=== PATIENT | female | born 1950 | race Caucasian/White ===

== ENCOUNTER 2017-01-19 10:52 | Day surgery (SDC) | payer MEDICARE, BC ==
[2017-01-17 12:53] VITALS: BMI 29.7
[~2017-01-19 10:52] MED LIST: ALBUTEROL NEB (CONC) 2.5 MG/0.5 ML INHALATION ONE; DEXAMETHASONE SOD PHOSPHATE 10 MG/ML 1 ML VIAL IV ONE; HYDROmorphone 1 MG/ML 1 ML SYRINGE IVP PRN; LACTATED RINGERS 1,000 ML IV ONE; LACTATED RINGERS 1,000 ML IV SCH; LIDOCAINE 2% (PF) 20 MG/ML 10ML INHALATION ONE; ONDANSETRON 4 MG/2 ML VIAL IVP ONE
[2017-01-19 11:35] VITALS: TEMP 97.8
[2017-01-19] MEDS ORDERED: LIDOCAINE 1% 20 ML VIAL (10MG/ML) FOR IV START INTRADERMA ONE (11:43)
[2017-01-19] MEDS ORDERED: LIDOCAINE 1% INJ 10MG/ML (20 ML MDV) ONE (12:16)
[2017-01-19] MEDS ORDERED: PROPOFOL 10 MG/ML 20 ML VIAL IV ONE (12:16)
[2017-01-19] MEDS ORDERED: LACTATED RINGERS 1,000 ML IV ONE (12:35)
--- NOTE | 2017-01-19 12:49 | P.PCN ---
Date of Procedure: 01/19/17 Preoperative Diagnosis: Tracheal stenosis Postoperative Diagnosis: Tracheal stenosis Procedure(s) Performed: Bronchoscopy with visualization and measurement of tracheal stenosis Implants: Anesthesia: KAYLYNA Surgeon: Rufino York Roll Off Driver #1: Chani Jaime Estimated Blood Loss (ml): 0 Pathology: none sent Condition: stable Disposition: PACU Indications for Procedure: Shortness of breath, stridor Operative Findings: Tracheal stenosis, approximately 8mm Description of Procedure: A 66-year-old female patient suspected to have recurrence tracheal stenosis. For that reason the flexible bronchoscopy and airway inspection was performed This procedure was done in the bronchoscopy suite. The patient had some stridorous cough. She was quite comfortable preoperatively. The patient was given a total of 100 mg of propofol. After achieving the sedation flexible bronchoscope was inserted to the right nostril and was advanced upper airway. Examination of posterior pharynx was within normal limits. Epiglottis was identified and was normal. Arytenoids, vallecula, and the cords were visualized. The cords were seen and visualized and inspected and are all within normal limits without any abnormalities mobility or function. No nodules. No lesions. No upper airway obstruction. Following that the bronchoscope was passed the vocal cords and immediately in the subglottic area around 1-2 cm below the vocal cords there was an area of tight tracheal stenosis where there was circumferential fibrinous tissue causing narrowing of the tracheal lumen and estimated tracheal size and the level of the stenosis was 8-9 mm. Measurements were estimated by a forceps the opening of which was 6 mm. I was able to pass the bronchoscope past the tracheal stenosis yet this maneuver made patient quite short of breath and stridorous and immediately the flexible bronchoscope was removed. The stenotic segment of the trachea is estimated to be less than 1 cm. The mid and distal tracheal clark was within normal limits. Unable to visualize the various segments of the lower lobes bilaterally based on the fact that the patient became quite short of breath and she developed immediate hypoxemia once intubated through the area of tight tracheal stenosis. At that point, the flexible bronchoscope was removed and the patient was sent to recovery in stable condition. The patient will be referred to see cardiothoracic surgery at [facility] for further advice.
[2017-01-19 12:53] VITALS: RESP 20
[2017-01-19 13:02] VITALS: BP 138/74; PULSE 78
[2017-01-19 14:07] LABS: Glucose,Whole Blood 125 mg/dL (75-99)
== END 2017-01-19 13:22 | disposition home or self-care (01) ==
LOC: ORWHC2ENDO 10:52
PROVIDERS: ATTEND Internal Medicine Critical Care Medicine
DX: J39.8 Other specified diseases of upper respiratory tract (principal); E11.9 Type 2 diabetes mellitus without complications; K21.9 Gastro-esophageal reflux disease without esophagitis; Z88.8 Allergy status to other drugs, medicaments and biological substances
CPT/HCPCS: 31645; 94640

== ENCOUNTER → 2018-12-29 | Outpatient (CLI) | payer MEDICARE, BC | END | disposition home or self-care (01) | LOC: CPPFTMAIN 08:00 | PROVIDERS: ATTEND Internal Medicine Critical Care Medicine | DX: R06.00 Dyspnea, unspecified (principal) | CPT/HCPCS: 94060; 94726; 94729 ==

== ENCOUNTER → 2019-01-25 | Outpatient (CLI) | payer MEDICARE, BC ==
--- NOTE | 2019-01-25 09:41 | US ---
EXAMINATION TYPE: US abdomen complete DATE OF EXAM: 01/25/2019 COMPARISON: CT 2011 CLINICAL HISTORY: R10.84 Generalized abdominal pain. EXAM MEASUREMENTS: Liver Length: 15.2 cm Gallbladder Wall: 0.2 cm CBD: 0.5 cm Spleen: 7.4 cm Right Kidney: 10.9 x 5.0 x 4.3 cm Left Kidney: 12.4 x 6.2 x 6.1 cm Pancreas: wnl Liver: There is increased echogenicity of the hepatic parenchyma with diminished visualization of th e portal triads most commonly relating to hepatic steatosis and limiting evaluation for underlying he patic masses. Gallbladder: wnl Evidence for sonographic Hwathorne's sign: No CBD: wnl Spleen: wnl Right Kidney: Non shadowing echogenic structure mid pole. This measures 5 mm. Left Kidney: Decreased renal cortex. Upper IVC: wnl Abd Aorta: wnl The liver is heterogenous. The intrahepatic portion of the IVC and proximal abdominal aorta are withi n normal limits. There is no evidence of cholelithiasis. Common bile duct is unremarkable. The vis ualized portions of the pancreas are homogenous. The spleen is unremarkable. Kidneys are symmetric and free of hydronephrosis. IMPRESSION: 1. Sonographic findings most commonly related to hepatic steatosis. Correlate with liver function leroy ts. 2. Small 5 mm hyperechoic cortical lesion of the right kidney that may represent a small angiomyolipo ma. Cortical renal thinning is noted on the left.
== END | disposition home or self-care (01) ==
LOC: RADUSWWP 07:58
PROVIDERS: ATTEND Family Medicine
DX: N28.89 Other specified disorders of kidney and ureter (principal); R10.13 Epigastric pain; R10.84 Generalized abdominal pain
CPT/HCPCS: 76700

== ENCOUNTER 2022-04-20 06:53 | Day surgery (SDC) | payer MEDICARE, BC ==
[2022-04-13 14:24] VITALS: BMI 25.8
[2022-04-20] MEDS ORDERED: LACTATED RINGERS 1,000 ML IV SCH (07:08)
[2022-04-20 07:15] VITALS: TEMP 97.4
[2022-04-20] MEDS ORDERED: LACTATED RINGERS 1,000 ML IV ONE (07:26)
[2022-04-20 07:42] LABS: Glucose,Whole Blood 95 mg/dL (70-110)
[2022-04-20] MEDS ORDERED: GLYCOPYRROLATE 0.2 MG/ML 2 ML VIAL ONE (08:15)
[2022-04-20] MEDS ORDERED: PROPOFOL 10 MG/ML 20 ML VIAL IV ONE (08:15)
--- NOTE | 2022-04-20 08:34 | P.PCN ---
Date of Procedure: 04/20/22 Procedure(s) Performed: BRIEF HISTORY: Patient is a 72-year-old pleasant white female scheduled for an elective colonoscopy as a part of screening for colon cancer. Her last colonoscopy was 10 years ago PROCEDURE PERFORMED: Colonoscopy. PREOPERATIVE DIAGNOSIS: Screening for colon cancer. IV sedation per Anesthesia. PROCEDURE: After informed consent was obtained, the patient, was brought into the endoscopy unit. IV sedation was administered by Anesthesia under continuous monitoring. Digital rectal examination was normal. Initially the Olympus CF-160 flexible video colonoscope was then inserted in the rectum, gradually advanced into the cecum without any difficulty. Careful examination was performed as the scope was gradually being withdrawn. Ileocecal valve and the appendiceal orifice were visualized and appeared normal. Prep was excellent. Mucosa of the cecum, ascending colon, transverse colon, descending colon, sigmoid colon, and rectum appeared normal. Retroflexion was performed in the rectum and no lesions were seen. The patient tolerated the procedure well. IMPRESSION: Normal-appearing colon from rectum to cecum with no evidence of colorectal neoplasia. RECOMMENDATIONS: Findings of this examination were discussed with the patient as well as a family. She was advised to have a repeat screening colonoscopy in 10 years..
[2022-04-20 08:39] VITALS: RESP 18
[2022-04-20 08:57] VITALS: BP 151/73; PULSE 69
== END 2022-04-20 09:33 | disposition home or self-care (01) ==
LOC: ORWHC2ENDO 06:53
PROVIDERS: ATTEND Internal Medicine Gastroenterology
DX: Z12.11 Encounter for screening for malignant neoplasm of colon (principal); E78.5 Hyperlipidemia, unspecified; K21.9 Gastro-esophageal reflux disease without esophagitis; E11.9 Type 2 diabetes mellitus without complications; K91.0 Vomiting following gastrointestinal surgery; Z79.82 Long term (current) use of aspirin; Z79.899 Other long term (current) drug therapy; Z88.1 Allergy status to other antibiotic agents
CPT/HCPCS: J2704; G0121